=== PATIENT | male | born 1990 | race African-American/Black ===

== ENCOUNTER 2016-08-30 19:45 | Emergency (ER) | payer OTHER ==
[2016-08-30] MEDS ORDERED: predniSONE 20 MG TABLET PO STA (22:00)
[2016-08-30] MEDS ORDERED: predniSONE 20 MG TABLET ONE (22:04)
== END 2016-08-30 22:07 | disposition home or self-care (01) ==
DX: L27.0 Generalized skin eruption due to drugs and medicaments taken internally (principal); T36.0X5A Adverse effect of penicillins, initial encounter; J02.8 Acute pharyngitis due to other specified organisms; B97.89 Other viral agents as the cause of diseases classified elsewhere; F17.200 Nicotine dependence, unspecified, uncomplicated
CPT/HCPCS: 87070; 87430; 99283; J7512